=== PATIENT | male | born 1985 | race Caucasian/White ===

== ENCOUNTER 2017-12-31 03:03 | Emergency (ER) | payer OTHER ==
[~2017-12-31] VITALS: Ht 175.3 cm; Wt 132.0 kg
[~2017-12-31 03:03] MED LIST: CEFADROXIL PO; HYDROCODON-ACE1 EAC7 PO; IBUPROFEN 800800 MG PO; LORTABELXR PO; NOHOMEMEDICATIONS; NORCO 5-325 TA1 EACH PO; ZPAK PO
[2017-12-31] MEDS ORDERED: KEFLEX500 M1 PO ×2 (04:01)
[2017-12-31 04:13] VITALS: BP 122/66
[2017-12-31] MEDS ORDERED: NORCO 5-325 TA1 EACH PO (14:42)
== END 2017-12-31 04:20 | disposition home or self-care (01) ==
LOC: M.ERS 03:03
DX: S62.397A Other fracture of fifth metacarpal bone, left hand, initial encounter for closed fracture (principal); I10 Essential (primary) hypertension; Z88.0 Allergy status to penicillin; W22.8XXA Striking against or struck by other objects, initial encounter; Y93.89 Activity, other specified; Y92.89 Other specified places as the place of occurrence of the external cause; Y99.8 Other external cause status

== ENCOUNTER 2017-12-31 14:24 | Emergency (ER) | payer OTHER ==
[~2017-12-31] VITALS: Ht 180.3 cm; Wt 113.4 kg
[~2017-12-31 14:24] MED LIST changes: +KEFLEX500 M1 PO
[2017-12-31] MEDS ORDERED: NORCO 5-325 TA1 EACH PO (14:42)
[2017-12-31 14:48] VITALS: BP 145/91
== END 2017-12-31 15:17 | disposition home or self-care (01) ==
LOC: M.ERS 14:24
DX: S62.307D Unspecified fracture of fifth metacarpal bone, left hand, subsequent encounter for fracture with routine healing (principal); X58.XXXD Exposure to other specified factors, subsequent encounter; I10 Essential (primary) hypertension; F17.210 Nicotine dependence, cigarettes, uncomplicated; Z88.0 Allergy status to penicillin

== ENCOUNTER 2018-01-05 16:09 | Emergency (ER) | payer OTHER ==
[~2018-01-05] VITALS: Ht 175.3 cm; Wt 134.7 kg
[2018-01-05 16:41] VITALS: BP 187/92
== END 2018-01-05 16:40 | disposition home or self-care (01) ==
LOC: M.ERS 16:09
DX: Z76.0 Encounter for issue of repeat prescription (principal); M79.642 Pain in left hand; I10 Essential (primary) hypertension

== ENCOUNTER 2019-04-25 16:14 | Emergency (ER) | payer OTHER ==
[~2019-04-25] VITALS: Ht 175.3 cm; Wt 104.3 kg
[2019-04-25 16:16] VITALS: BP 151/89
[2019-04-25 16:36] LABS: INFLUENZA A ANTIGEN Negative (Negative)
[2019-04-25] MEDS ORDERED: TAMIFLU75 MG PO (16:44)
[2019-04-25] MEDS ORDERED: PREDNISONE 20 M20 M1 PO (16:44)
== END 2019-04-25 17:02 | disposition home or self-care (01) ==
LOC: M.ERS 16:14
PROVIDERS: Nurse Practitioner Family
DX: J10.1 Influenza due to other identified influenza virus with other respiratory manifestations (principal); I10 Essential (primary) hypertension; Z88.0 Allergy status to penicillin